=== PATIENT | male | born 1980 ===

== ENCOUNTER 2017-08-02 15:49 | Emergency (ER) | payer OTHER ==
[2017-08-02 16:01] VITALS: O2SAT 98
[2017-08-02] MEDS ORDERED: Lidocaine 1% Inj (20ml) INFIL ONE (16:37)
[2017-08-02] MEDS ORDERED: Lidocaine 1% Inj (20ml) ONE (16:47)
--- NOTE | 2017-08-02 16:51 | C.PDOC ---
History Of Present Illness pt c/o pain and swelling to right side gluteal cleft x 2-3 days. pt has had simular pain in past about 6 months ago with i and D. no f/u with surgery. + subjective fever. no hx dm. Time Seen by Provider: 08/02/17 16:14 Chief Complaint (Nursing): Abnormal Skin Integrity History Per: Patient Onset/Duration Of Symptoms: Days (3) Location Of Injury: Right: Buttock Quality Of Symptoms: Painful, Swollen. denies: Draining Severity: Moderate Past Medical History Reviewed: Historical Data, Nursing Documentation, Vital Signs Vital Signs: Last Vital Signs Temp 99.4 F 08/02/17 17:37 Pulse 76 08/02/17 17:37 Resp 18 08/02/17 17:37 BP 119/75 08/02/17 17:37 Pulse Ox 98 08/02/17 17:42 - Medical History PMH: Pancreatitis Surgical History: Appendectomy Family History: States: Unknown Family Hx - Social History Hx Tobacco Use: Yes Hx Alcohol Use: Yes Hx Substance Use: No - Immunization History Hx Tetanus Toxoid Vaccination: Yes Hx Influenza Vaccination: No Hx Pneumococcal Vaccination: No Review Of Systems Constitutional: Positive for: Fever (subjective) Gastrointestinal: Negative for: Nausea, Vomiting, Abdominal Pain Genitourinary: Negative for: Dysuria, Frequency Skin: Positive for: Other (mass to right gluteal cleft) Neurological: Negative for: Weakness, Numbness Physical Exam - Physical Exam Appears: Non-toxic, Other (uncomfortable) Skin: Warm, Dry, Other (fluctuant mass to right proximal gluteal cleft with tenderness and warmth) Gastrointestinal/Abdominal: Soft, No Tenderness Rectal: Mass (right gluteal cleft, fluctuant mass), Tenderness Back: Normal Inspection, No Vertebral Tenderness Neurological/Psych: Oriented x3, Normal Speech, Normal Cognition ED Course And Treatment O2 Sat by Pulse Oximetry: 98 - Incision & Drainage Of Abscess Anesthesia: Lidocaine 1% Prep Used: Betadine Procedure: Incised W/Scalpel Blade#: (11), Drained Pus, Irrigated Cavity W/ Saline, Probed To Break Up Loculations, Packed W/Gauze Medical Decision Making Medical Decision Making: pilonidal abscess incised and drained with copious purulent drainage; packing inserted. Disposition Counseled Patient/Family Regarding: Diagnosis, Need For Followup, Rx Given - Disposition Referrals: [facility] [Outside] [facility] [Outside] Juan Beckett MD [Staff Provider] - Disposition: HOME/ ROUTINE Disposition Time: 17:38 Condition: IMPROVED Additional Instructions: Return to ER on Sat (in 2 days) for a wound check and packing removal. Keep dressing clean and dry. Take antibiotics as prescribed/ Prescriptions: Cephalexin [Keflex] 500 mg PO QID #28 capsule Ibuprofen [Motrin] 600 mg PO TID #30 tab Sulfamethoxazole/Trimethoprim [Bactrim DS 800 mg-160 mg] 1 tab PO BID #14 tab Instructions: Abscess Incision and Drainage (ED) Forms: General Discharge Instructions, [facility] (Spanish), Work Excuse - Clinical Impression Clinical Impression: Pilonidal abscess
[2017-08-02] MEDS ORDERED: Tmp-Smz 800 mg-160 mg DS Tab PO STA (17:32)
[2017-08-02] MEDS ORDERED: Tmp-Smz 800 mg-160 mg DS Tab ONE (17:34)
[2017-08-02 17:38] VITALS: BP 119/75; PULSE 76; RESP 18; TEMP 99.4
== END 2017-08-02 17:46 | disposition home or self-care (01) ==
LOC: C.ER 15:49
DX: L05.01 Pilonidal cyst with abscess (principal)